=== PATIENT | female | born 1960 | race Caucasian/White ===

== ENCOUNTER 2019-09-03 11:48 | Day surgery (SDC) | payer MEDICAID ==
[~2019-09-03] VITALS: Ht 157.5 cm; Wt 69.1 kg
[~2019-09-03 11:48] MED LIST: SODIUM CHLORIDE 0.9% 1,000 ML ONE
[2019-09-03] MEDS ORDERED: PROPOFOL 1% 20 ML VIAL IVP ONE (12:00)
[2019-09-03] MEDS ORDERED: LIDOCAINE/PF 2% 5 ML VIAL INJ ONE (12:00)
[2019-09-03] MEDS ORDERED: SODIUM CHLORIDE 0.9% 1,000 ML IV ONE (13:00)
[2019-09-03] MEDS ORDERED: SPIR50 PO (13:03)
[2019-09-03] MEDS ORDERED: FURO20 PO (13:03)
[2019-09-03] MEDS ORDERED: PROP10TA73 PO (13:03)
[2019-09-03] MEDS ORDERED: FOLI1 PO (13:03)
[2019-09-03] MEDS ORDERED: MULT-1203 PO (13:03)
[2019-09-03] MEDS ORDERED: RIFAX550 PO (13:03)
[2019-09-03] MEDS ORDERED: OMEP20 PO (13:03)
[2019-09-03] MEDS ORDERED: AMOX1TAB16 PO (13:03)
[2019-09-03] MEDS ORDERED: LACT30L PO (13:03)
[2019-09-03] MEDS ORDERED: LEVE500T53 PO (13:03)
[2019-09-03] MEDS ORDERED: THIA100T67 PO (13:03)
[2019-09-03 13:25] LABS: GLUCOMETER DEV NAME(LOC) SDS.; GLUCOSE,POINT OF CARE 144 MG/DL (70-110)
== END 2019-09-03 15:25 | disposition home or self-care (01) ==
LOC: SURGERY 11:48
PROVIDERS: ATTEND Student in an Organized Health Care Education/Training Program
DX: I85.00 Esophageal varices without bleeding (principal); K74.60 Unspecified cirrhosis of liver; K76.6 Portal hypertension; K31.89 Other diseases of stomach and duodenum; F10.10 Alcohol abuse, uncomplicated
CPT/HCPCS: 43235; 82962; 88305; 88312; 88313; C1769; J2704; J3490; J7030

== ENCOUNTER 2019-11-07 07:27 | Day surgery (SDC) | payer MEDICAID ==
[~2019-11-07] VITALS: Ht 154.9 cm; Wt 69.1 kg
[~2019-11-07 07:27] MED LIST changes: +AMOX1TAB16 PO; +FOLI1 PO; +FURO20 PO; +LACT30L PO; +LEVE500T53 PO; +MULT-1203 PO; +OMEP20 PO; +PROP10TA73 PO; +RIFAX550 PO; +SPIR50 PO; +THIA100T67 PO
[2019-11-07] MEDS ORDERED: SODIUM CHLORIDE 0.9% 1,000 ML IV ONE (07:30)
[2019-11-07] MEDS ORDERED: SODIUM CHLORIDE 0.45% 500 ML IV ONE ×2 (09:00→09:18)
[2019-11-07 09:34] LABS: BASOPHILS % (AUTO) 1.5 % (0.0-2.0); EOSINOPHILS % (AUTO) 2.7 % (1.0-6.0); HEMATOCRIT 35.8 % (36-46); HEMOGLOBIN 11.5 g/dL (12.0-16.0); LYMPHOCYTES # (AUTO) 1.6 K/uL (1.0-4.8); LYMPHOCYTES % (AUTO) 24.7 % (22.0-44.0); MEAN CORPUSCULAR HEMOGLOBIN 28.3 pg (26.0-34.0); MEAN CORPUSCULAR HGB CONC 32.2 G/dL (31.0-37.0); MEAN CORPUSCULAR VOLUME 88 fL (80-100); MONOCYTES # (AUTO) 0.8 K/uL (0.1-1.0); MONOCYTES % (AUTO) 12.3 % (2.0-9.0); NEUTROPHILS # (AUTO) 3.8 K/uL (1.8-7.7); NEUTROPHILS % (AUTO) 58.8 % (40.0-70.0); PLATELET COUNT (AUTO) 116 K/uL (150-450); RED BLOOD CELL COUNT(AUTO) 4.07 MIL/uL (4.00-5.20); RED CELL DISTRIBUTION WIDTH 21.6 % (11.5-14.5)
[2019-11-07 09:41] LABS: ANION GAP 9 mmol/L (8-16); CALCIUM, TOTAL 7.7 mg/dL (8.8-10.5); CARBON DIOXIDE 31 mmol/L (22-29); CHLORIDE 101 mmol/L (98-107); CREATININE 0.41 mg/dL (0.60-1.30); GLOMERULAR FILTR. RATE CALC > 60 mL/min (>60); GLUCOSE,RANDOM 126 mg/dL (70-110); SODIUM SERUM 141 mmol/L (136-145); UREA NITROGEN, BLOOD 9 mg/dL (7-18)
[2019-11-07 09:45] LABS: INR 1.2 (0.9-1.1); PROTHROMBIN TIME 12.2 SEC (9.4-11.6)
[2019-11-07 09:47] LABS: ALANINE AMINOTRANSFERASE 19 U/L (12-78); ALBUMIN 2.7 g/dL (3.4-5.0); ALKALINE PHOSPHATASE 147 U/L (46-116); ASPARTATE AMINOTRANSFERASE 69 U/L (15-37); BILIRUBIN,TOTAL 2.8 mg/dL (0.1-1.0); TOTAL PROTEIN, SERUM 7.8 g/dL (6.4-8.2)
[2019-11-07] MEDS ORDERED: IPRA4AER IH (09:50)
[2019-11-07] MEDS ORDERED: ALBU8.5H8 IH (09:50)
[2019-11-07] MEDS ORDERED: INSU100I26 SQ (09:50)
[2019-11-07] MEDS ORDERED: BUDE10.2 IH (09:50)
== END 2019-11-07 11:50 | disposition home or self-care (01) ==
LOC: SURGERY 07:27 → EDSTATUS 09:30 → SURGERY 11:50
PROVIDERS: ATTEND Internal Medicine Gastroenterology
DX: R14.0 Abdominal distension (gaseous) (principal); K70.30 Alcoholic cirrhosis of liver without ascites; I10 Essential (primary) hypertension; J44.9 Chronic obstructive pulmonary disease, unspecified; F17.210 Nicotine dependence, cigarettes, uncomplicated; Z72.89 Other problems related to lifestyle; Z79.01 Long term (current) use of anticoagulants
CPT/HCPCS: 36415; 76705; 80053; 85025; 85610; 85730; J7030

== ENCOUNTER 2019-11-27 07:38 | Day surgery (SDC) | payer MEDICAID ==
[~2019-11-27] VITALS: Ht 157.5 cm; Wt 68.1 kg
[~2019-11-27 07:38] MED LIST changes: +ALBU8.5H8 IH; +BUDE10.2 IH; +FOLI-130 PO; -FOLI1 PO; +INSU100I26 SQ; +IPRA4AER IH
[2019-11-27] MEDS ORDERED: SODIUM CHLORIDE 0.9% 1,000 ML IV ONE (08:00)
[2019-11-27] MEDS ORDERED: PROPOFOL 1% 20 ML VIAL IVP ONE (12:00)
[2019-11-27] MEDS ORDERED: LIDOCAINE/PF 2% 5 ML SYRINGE IVP ONE (12:00)
== END 2019-11-27 12:10 | disposition home or self-care (01) ==
LOC: SURGERY 07:38
PROVIDERS: ATTEND Student in an Organized Health Care Education/Training Program
DX: I85.00 Esophageal varices without bleeding (principal); K76.6 Portal hypertension; K31.89 Other diseases of stomach and duodenum; K70.30 Alcoholic cirrhosis of liver without ascites; F17.210 Nicotine dependence, cigarettes, uncomplicated; I10 Essential (primary) hypertension; J44.9 Chronic obstructive pulmonary disease, unspecified; E11.9 Type 2 diabetes mellitus without complications; Z79.899 Other long term (current) drug therapy; Z98.890 Other specified postprocedural states
CPT/HCPCS: 43244; J2704; J3490; J7030